=== PATIENT | male | born 1945 | race Caucasian/White ===

== ENCOUNTER → 2021-07-19 08:22 | Outpatient (BNVA) | payer MEDICARE, SELFPAY | PROVIDERS: PCP Internal Medicine | DX: Z13.9 Encounter for screening, unspecified (principal); R35.1 Nocturia; N50.89 Other specified disorders of the male genital organs | CPT/HCPCS: 51798; 99202 ==

== ENCOUNTER → 2021-08-19 08:14 | Outpatient (BNVA) | payer MEDICARE, SELFPAY | PROVIDERS: PCP Internal Medicine; Visit Provider Urology | DX: N50.89 Other specified disorders of the male genital organs (principal) | CPT/HCPCS: 99212 ==

== ENCOUNTER 2021-09-15 12:29 | Outpatient (REF) | payer MEDICARE, SELFPAY ==
--- NOTE | ~2021-09-15 | US_ITS ---
EXAMINATION: US SCROTUM CLINICAL INFORMATION: Swelling of testicles. COMPARISON: None TECHNIQUE: A sonogram of the scrotum was performed assessing patricia-scale appearance and color Doppler flow. Spectral Doppler analysis of the arterial and venous flow were performed in the testes bilaterally. FINDINGS: RIGHT: Right testicle measures 3.5 x 2.6 x 2.8 cm, volume 13.3 mL. No focal testicular parenchymal lesions are visualized. Spectral Doppler analysis of the arterial and venous flow is normal in the right testis. Right epididymal head is normal in size. Mild prominence of the epididymal tail, although this shows normal vascularity. No right varicocele is seen. Right epididymal Doppler flow is normal. A small hydrocele is present with internal debris. LEFT: Left testicle measures 3.7 x 2.1 x 3.1 cm, volume 12.6 mL. No focal testicular parenchymal lesions are visualized. Spectral Doppler analysis of the arterial and venous flow is normal in the left testis. Left epididymal head is normal in size. No left varicocele is seen. Left epididymal Doppler flow is normal. A small hydrocele is present with internal debris. Scrotal josiah is noted. This measures 0.6 cm. US/US scrotum IMPRESSION: Small bilateral hydroceles with internal debris. Left scrotal josiah.
== END 2021-09-15 12:30 | disposition home or self-care (01) ==
LOC: HO.US 12:29
PROVIDERS: PCP Family Medicine; Visit Provider Urology
DX: N50.89 Other specified disorders of the male genital organs (principal)
CPT/HCPCS: 76870

== ENCOUNTER → 2021-09-27 08:16 | Outpatient (BNVA) | payer MEDICARE, SELFPAY | PROVIDERS: PCP Family Medicine; Visit Provider Urology | DX: Z13.89 Encounter for screening for other disorder (principal) | CPT/HCPCS: Q3014 ==

== ENCOUNTER → 2022-03-23 13:36 | Outpatient (BNVA) | payer MEDICARE, SELFPAY | PROVIDERS: PCP Family Medicine; Visit Provider Urology | DX: N50.89 Other specified disorders of the male genital organs (principal) | CPT/HCPCS: 51798; 99212 ==

== ENCOUNTER 2023-06-21 10:12 | Outpatient (AMB) | payer MEDICARE, SELFPAY ==
--- NOTE | 2023-06-21 10:15 | MHC.OFFVIS ---
Intake Intake Visit Reasons: 1Y PVR/Nocturia Intake Note: Patient is Present for Follow Up Urology Medication: Tamsulosin Antibiotic Allergies: None Blood Thinners: Aspirin, Clopidogrel PVR: Allergies No Known Allergies Allergy (Verified 03/20/22 15:14) Medication List - Last Reconciled 06/21/23 by Christopher Billings MD aspirin 81 mg PO DAILY atorvastatin 40 mg PO DAILY clopidogrel 75 mg PO DAILY lisinopril 5 mg PO DAILY metoprolol tartrate 25 mg PO BID terazosin 5 mg PO BEDTIME 30 days HPI HPI Comments History of Present Illness Details Juan José is a pleasant male. He is a patient Dr Guajardo. He seen for the following urologic conditions - intermittent testicular swelling - lower urinary tract symptoms Still with nocturia 3-4 Filed prior tadalafil, tamsulosin Trial terazosin 5 mg Still with intermittent testicular swelling mostly left-sided Intermittent testicular swelling States that every night his testicle swell to 3 times normal size Normal examination Imaging - 09/06 scrotal ultrasound small right hydrocele Lower urinary tract symptoms Primarily nocturia Reasonable stream, effective emptying Failed prior alpha-angie Trial terazosin PFSH Medical History Nocturia Swelling of testicle Review of Systems Const Denies chills and Denies fever(s) Card Reports no additional complaints and Denies syncope Resp Denies cough GI Denies abdominal pain and Denies heartburn Reports as per HPI and Denies change in libido Neuro Denies syncope Psych Denies change in libido Endo Denies change in libido Physical Exam Const General: cooperative, healthy appearing, comfortable and no acute distress Orientation/consciousness: patient oriented x3 HEENT Face and sinus: Yes normal facial exam Mouth: moist mucous membranes Neck Neck: Yes normal visual inspection, Yes full ROM and Yes trachea midline Chest Chest palpation & inspection: normal inspection of the chest Resp Effort & Inspection: normal respiratory effort, able to speak in complete sentences and no respiratory distress GI Inspection: Yes normal to inspection Back/Spine/Pelvis Cervical Spine: normal cervical lordosis Thoracic/Lumbar Spine: thoracic and lumbar spine normal to inspection Skin General skin exam: no rashes or lesions noted Neuro General: patient oriented x3, gait normal, tone normal and moves all extremities Extrem General: Yes normal to inspection and Yes capillary refill normal Assessment & Plan Assessment & Plan (1) Nocturia: Code(s): R35.1 - Nocturia (2) Swelling of testicle: Code(s): N50.89 - Other specified disorders of the male genital organs Plan Trial terazosin Orders: Orders AMB Post Void Residual by ultrasound Today R35.1 - Nocturia Medications: New terazosin 5 mg PO BEDTIME 30 days 30 caps 1RF N40.1 - Benign prostatic hyperplasia with lower urinary tract symptoms, R35.0 - Frequency of micturition, R35.1 - Nocturia Discontinued tamsulosin (Flomax) Discontinued Reason: Patient no longer taking 0.4 mg PO BEDTIME 90 caps 3RF Patient Instructions: Imaging studies, laboratory and physical exam results were discussed and reviewed in detail. No major barriers to patient understanding were identified. An opportunity to ask questions regarding the treatment plan was provided. All questions were answered. The patient expressed understanding and agreement with the above treatment plan. The patient is aware they should contact our office by phone for worsening of their current condition or the appearance of new urologic symptoms. Compliance is encouraged with any medications and followup testing that is ordered. It is a privilege to participate in the urologic care of your patient. If you have any questions or concerns regarding treatment for the above conditions, or other urologic issues, please do not hesitate to contact me. The office telephone contact is [phone]. This note is constructed using voice recognition software. While every effort has been made to ensure accuracy channeler outsole errors may have been included. Yours sincerely, Dr Christopher Billings MD, [facility] - Urology Providers of Expert, Compassionate Care for the Genitourinary System Coding Level of Care Code Est Pt Level 4 (55059) Diagnoses Nocturia R35.1 Swelling of testicle N50.89
== END 2023-06-21 11:03 | disposition home or self-care (01) ==
PROVIDERS: PCP Family Medicine; Referring Provider Family Medicine; Visit Provider Urology
DX: R35.1 Nocturia (principal); N50.89 Other specified disorders of the male genital organs
CPT/HCPCS: 99214

== ENCOUNTER → 2023-06-21 10:12 | Outpatient (BNVA) | payer MEDICARE, SELFPAY | PROVIDERS: Visit Provider Urology | DX: R35.1 Nocturia (principal); N50.89 Other specified disorders of the male genital organs | CPT/HCPCS: 99212 ==

== ENCOUNTER 2023-10-23 14:03 | Outpatient (AMB) | payer MEDICARE, SELFPAY ==
--- NOTE | 2023-10-23 14:03 | A.OFFVIS_ITS ---
Intake Visit Reasons: 2M Med Review(Terazosin) Intake Note: Patient is Present today via telephone for Follow Up Urology Medication: Terazosin Antibiotic Allergies: None Blood Thinners: Aspirin, Clopidogrel Web Consultant Required: No Accompanied by: Self / Same As Patient Allergies No Known Allergies Allergy (Verified 03/20/22 15:14) Medication List - Last Reconciled 10/23/23 by Christopher Billings MD aspirin 81 mg PO DAILY atorvastatin 40 mg PO DAILY clopidogrel 75 mg PO DAILY lisinopril 5 mg PO DAILY metoprolol tartrate 25 mg PO BID terazosin 5 mg PO BEDTIME 90 days HPI Comments Details: Juan José is a pleasant male. He is a patient Dr Guajardo. He seen for the following urologic conditions - intermittent testicular swelling - lower urinary tract symptoms Telemedicine Evaluation 15 min Consultation [employer] Remy Video attempted Success with terazosin 5mg nocturia x1-2 will refill Six-month follow-up bladder ultrasound Still with nocturia 3-4 Failed prior tadalafil, tamsulosin Trial terazosin 5 mg Still with intermittent testicular swelling mostly left-sided Intermittent testicular swelling States that every night his testicle swell to 3 times normal size Normal examination Imaging - 09/06 scrotal ultrasound small right hydrocele Lower urinary tract symptoms Primarily nocturia Reasonable stream, effective emptying Failed prior alpha-angie Trial terazosin PFSH Medical History Nocturia Swelling of testicle Telehealth Telehealth Telehealth Platform: [employer] Location of provider rendering services: practice address Location of patient: address on file Patient Identification confirmed using: Name, : Yes Telehealth method: video Patient verbally consented to treatment: Yes Patient verbally consented to billing insurance company: Yes Patient informed of any privacy concerns related to visit: Yes Minutes spent on Phone/Video with Pt.: 15 Assessment & Plan Assessment & Plan (1) Nocturia: Code(s): R35.1 - Nocturia Category: Medical (2) Bladder outlet obstruction: Code(s): N32.0 - Bladder-neck obstruction Category: Medical Plan Continue current medications Six-month follow-up bladder ultrasound Orders: Orders US bladder 6 Months R35.1 - Nocturia, R39.12 - Poor urinary stream Medications: Changed From terazosin 5 mg PO BEDTIME 30 days 30 caps 1RF N40.1 - Benign prostatic hyperplasia with lower urinary tract symptoms, R35.0 - Frequency of micturition, R35.1 - Nocturia To terazosin 5 mg PO BEDTIME 90 days 90 caps 1RF N40.1 - Benign prostatic hyperplasia with lower urinary tract symptoms, R35.0 - Frequency of micturition, R35.1 - Nocturia Patient Instructions: Imaging studies, laboratory and physical exam results were discussed and reviewed in detail. No major barriers to patient understanding were identified. An opportunity to ask questions regarding the treatment plan was provided. All questions were answered. The patient expressed understanding and agreement with the above treatment plan. The patient is aware they should contact our office by phone for worsening of their current condition or the appearance of new urologic symptoms. Compliance is encouraged with any medications and followup testing that is ordered. It is a privilege to participate in the urologic care of your patient. If you have any questions or concerns regarding treatment for the above conditions, or other urologic issues, please do not hesitate to contact me. The office telephone contact is [phone]. This note is constructed using voice recognition software. While every effort h as been made to ensure accuracy president & ceo errors may have been included. Yours sincerely, Dr Christopher Billings MD, [facility] - Urology Providers of Expert, Compassionate Care for the Genitourinary System Coding Level of Care Code Tele Est Pt Level 3 (95013) Diagnoses Nocturia R35.1 Bladder outlet obstruction N32.0
== END 2023-10-23 15:09 | disposition home or self-care (01) ==
LOC: HO.HUSH 14:03
PROVIDERS: PCP Family Medicine; Visit Provider Urology
DX: R35.1 Nocturia (principal); N32.0 Bladder-neck obstruction
CPT/HCPCS: 99213

== ENCOUNTER → 2023-10-23 14:03 | Outpatient (BNVA) | payer MEDICARE, SELFPAY | PROVIDERS: PCP Family Medicine; Visit Provider Urology ==

== ENCOUNTER 2024-04-28 11:16 | Outpatient (REF) | payer MEDICARE, SELFPAY ==
--- NOTE | ~2024-04-28 | US_ITS ---
EXAMINATION: US PELVIS LIMITED (BLADDER) CLINICAL INFORMATION: Poor urinary stream. COMPARISON: None available. TECHNIQUE: Real-time imaging of the bladder. FINDINGS: PROSTATE: The prostate is enlarged measuring 7.2 x 6.7 x 5.8 cm for a volume of 146 cc BLADDER: Well distended. The bladder wall is trabeculated with a small diverticulum noted on the left measuring less than 1.0 cm. Bilateral ureteral jets are demonstrated. Prevoid bladder volume is 327 mL. Postvoid bladder volume is 50 mL. US/US bladder IMPRESSION: Markedly enlarged 146 cc prostate with 50 cc postvoid residual and trabeculated bladder. Electronically signed by: Rachid Sharpe MD 05/19/2024 09:49 PM EST
== END 2024-04-28 11:17 | disposition home or self-care (01) ==
LOC: HO.US 11:16
PROVIDERS: Visit Provider Urology
DX: R39.12 Poor urinary stream (principal); R35.1 Nocturia
CPT/HCPCS: 76857

== ENCOUNTER 2024-05-02 13:10 | Outpatient (AMB) | payer MEDICARE, SELFPAY ==
--- NOTE | 2024-05-02 13:11 | MHC.OFFVIS ---
Intake Visit Reasons: 6M Scrotal US(set) Intake Note: Patient is Present for Telephone Follow Up Scrotal Ultrasound Urology Med: Terazosin Antibiotic Allergy: None Blood Thinner: Aspirin - Patient reports he is only on aspirin for blood thinner not Clopidogrel(Plavix) Scrotal Ultrasound: 04/28/2024 Hvac Engineering Technician Required: No Accompanied by: Self / Same As Patient Allergies No Known Allergies Allergy (Verified 05/02/24 13:14) HPI Comments Details: Juan José is a pleasant male. He is a patient Dr Guajardo. He seen for the following urologic conditions - intermittent testicular swelling - lower urinary tract symptoms Telemedicine Evaluation 15 min Consultation [employer] Video attempted Six-month follow-up Bladder ultrasound shows 100 g prostate Still with nocturia 1-2 times Add finasteride Discussed prostate procedure Review in 6 months while stone combination therapy Intermittent testicular swelling States that every night his testicle swell to 3 times normal size Normal examination Imaging - 09/06 scrotal ultrasound small right hydrocele Lower urinary tract symptoms Primarily nocturia Reasonable stream, effective emptying Management with terazosin Bladder ultrasound prostate 100 g PFSH Medical History Swelling of testicle Nocturia Review of Systems Const All systems reviewed & are unremarkable except as noted in HPI and below Reports no additional complaints Resp Reports no additional complaints GI Reports no additional complaints Reports as per HPI Musc Reports no additional complaints Physical Exam Telemedicine evaluation Appropriate responses Regular breathing rate and rhythm HEENT Head: Yes normal to inspection Ears: hearing grossly normal bilaterally Eyes General: appearance normal, both eyes and all related structures Neck Neck: Yes normal visual inspection Chest Chest palpation & inspection: normal inspection of the chest Resp Effort & Inspection: normal respiratory effort and able to speak in complete sentences Telehealth Telehealth Telehealth Platform: [employer] Location of provider rendering services: practice address Location of patient: address on file Patient Identification confirmed using: Name, : Yes Telehealth method: video Patient verbally consented to treatment: Yes Patient verbally consented to billing insurance company: Yes Patient informed of any privacy concerns related to visit: Yes Minutes spent on Phone/Video with Pt.: 15 Assessment & Plan Assessment & Plan (1) Nocturia: Code(s): R35.1 - Nocturia Category: Medical (2) Bladder outlet obstruction: Code(s): N32.0 - Bladder-neck obstruction Category: Medical Plan Start finasteride Six-month review Consider [employer] laser Orders: Orders PSA,Total (Free>4and<10) 6 Months N32.0 - Bladder-neck obstruction Medications: New finasteride 5 mg PO DAILY 90 days 90 tabs 1RF N13.8 - Other obstructive and reflux uropathy, N32.0 - Bladder-neck obstruction, N40.1 - Benign prostatic hyperplasia with lower urinary tract symptoms, R33.9 - Retention of urine, unspecified Refilled terazosin 5 mg PO BEDTIME 90 days 90 caps 1RF N40.1 - Benign prostatic hyperplasia with lower urinary tract symptoms, R35.0 - Frequency of micturition, R35.1 - Nocturia Patient Instructions: Imaging studies, laboratory and physical exam results were discussed and reviewed in detail. No major barriers to patient understanding were identified. An opportunity to ask questions regarding the treatment plan was provided. All questions were answered. The patient expressed understanding and agreement with the above treatment plan. The patient is aware they should contact our office by phone for worsening of their current condition or the appearance of new urologic symptoms. Compliance is encouraged with any medications and followup testing that is ordered. It is a privilege to participate in the urologic care of your patient. If you have any questions or concerns regarding treatment for the above conditions, or other urologic issues, please do not hesitate to contact me. The office telephone contact is [phone]. This note is constructed using voice recognition software. While every effort has been made to ensure accuracy low pressure boiler tender errors may have been included. Yours sincerely, Dr Christopher Billings MD, [facility] - Urology Providers of Expert, Compassionate Care for the Genitourinary System Coding Level of Care Code Tele Est Pt Level 4 (51981) Diagnoses Nocturia R35.1 Bladder outlet obstruction N32.0
== END 2024-05-02 13:50 | disposition home or self-care (01) ==
LOC: HO.HUSH 13:10
PROVIDERS: Visit Provider Urology
DX: R35.1 Nocturia (principal); N32.0 Bladder-neck obstruction
CPT/HCPCS: 99214

== ENCOUNTER → 2024-05-02 13:10 | Outpatient (BNVA) | payer MEDICARE, SELFPAY | PROVIDERS: Visit Provider Urology ==